=== PATIENT | female | born 1955 | race Caucasian/White ===

== ENCOUNTER 2016-10-24 09:06 | Emergency (ER) | payer MEDICARE, MEDICAID ==
[2015-09-27 08:34] VITALS: BMI 24.5
[~2016-10-24 09:06] MED LIST: ASPIRIN325 MG PO; ATIVAN1 MG PO; BAYER CHEWABLE81 MG PO; BYSTOLIC5 MG PO; CARAFATE1 G PO; COREG 3.1253.125 MG PO; COREG CR10 MG PO; CYMBALTA60 MG PO; DEXILANT60 MG PO; DOXYCYCLINE HY100 M2 PO; DURAGESIC1 PATCH .1 TRANSDERM; ESGIC TABLET1 TAB PO; FLEXERIL10 MG PO; HUMALOG 30100 UNITS/ SC; IMDUR30 MG PO; IPRAT-ALBUT 0.5-3 ML NEB; K-DUR20 MEQ PO; KADIAN80 MG PO; KLONOPIN0.5 MG PO; LANTUS INSULIN10 ML SC; LANTUS SOL100 UNIT/1 SC; LANTUS SOL100 UNIT/1 SQ; LASIX20 MG PO; LOPRESSOR50 MG PO; MORPHINE IMMEDI30 M1 PO; MORPHINE SULFAT30 MG PO; MUCINEX DM ER1 EAC1 PO; NEURONTIN800 MG PO; NITRO-DUR0.1 MG TD; NITRO-DUR0.1 MG TRANSDERM; NITROSTAT0.4 MG SL; NOVOLOG100 U/M1; NOVOLOG100 U/M1 SC; NYSTATIN15 GM TP; OMNICEF300 MG PO; PERCOCET 10/3251 TA1 PO; PLAVIX75 MG PO; POTASSIUM20 MEQ/11 PO; PRAVACHOL20 MG PO; PRAVACHOL40 MG PO; PRILOSEC20 MG PO; PULMICORT0.5 MG/21 UPD; RANEXA500 MG PO; REMERON15 MG PO; REMERON45 MG PO; RESTASIS EYE DR30 EA EACH EYE; RESTORIL15 MG PO; RESTORIL22.5 MG PO; ROBAXIN-750750 MG PO; ROBITUSSIN DM 110 ML PO; SINGULAIR10 MG PO; TESSALON PERLE100 MG PO; TYLENOL 8 HOUR650 MG PO; VIIBRYD40 MG PO; XANAX0.5 MG PO; ZANAFLEX4 MG PO; ZOCOR40 MG PO; ZOFRAN8 MG PO
== END 2016-10-24 10:52 | disposition home or self-care (01) ==
LOC: D.ER 09:06
DX: S80.01XA Contusion of right knee, initial encounter (principal); W05.0XXA Fall from non-moving wheelchair, initial encounter; Y93.89 Activity, other specified; Y92.89 Other specified places as the place of occurrence of the external cause; S90.31XA Contusion of right foot, initial encounter; S93.402A Sprain of unspecified ligament of left ankle, initial encounter; E11.9 Type 2 diabetes mellitus without complications; Z79.4 Long term (current) use of insulin

== ENCOUNTER 2017-03-24 20:49 | Emergency (ER) | payer MEDICARE, MEDICAID ==
[2015-09-27 08:34] VITALS: BMI 24.5
[2017-03-24 22:19] LABS: BASOPHILS 0.2 % (0-2); EOSINOPHILS 0.8 % (0-7); HEMOGLOBIN 11.7 g/dL (12-16); IMMATURE GRANULOCYTES 0.8 % (0-5); LYMPHOCYTES 26.1 % (15-50); MCH 31.7 pg (26.0-34.0); MCHC 34.4 g/dL (31.0-37.0); MCV 92.1 fL (80.0-100.0); MEAN PLATELET VOLUME 10.5 fL (7.4-10.4); MONOCYTES 3.6 % (2-11); NEUTROPHILS 68.5 % (40-80); PLATELET COUNT 106 10x3/uL (130-400); RBC 3.69 10x6/uL (4.00-5.40); RDW 12.4 % (11.5-14.5); WBC 6.6 10x3/uL (4.8-10.8)
[2017-03-24 22:28] LABS: KETONE - SERUM NEGATIVE (NEGATIVE)
[2017-03-24 22:41] LABS: ALBUMIN 3.1 g/dL (3.4-5.0); ALKALINE PHOSPHATASE 100 U/L (46-116); ALT (SGPT) 31 U/L (10-68); BILIRUBIN - TOTAL 0.36 mg/dL (0.2-1.3); CALC OSMOLALITY 298 mosm/kg (275-300); CALCIUM 7.7 mg/dL (8.5-10.1); CARBON DIOXIDE 27.4 mmol/L (21.0-32.0); CHLORIDE - SERUM 103 mmol/L (98-107); CREATININE - SERUM 0.9 mg/dL (0.6-1.3); POTASSIUM - SERUM 3.7 mmol/L (3.5-5.1); PRO BNP 71 pg/mL (0-125); PROTEIN - SERUM 6.6 g/dL (6.4-8.2); SODIUM 141 mmol/L (136-145); UREA NITROGEN 12 mg/dL (7-18); eGFR NON AFRICAN AMERICAN 68 mL/min (90-120)
[2017-03-24 22:52] LABS: GLUCOSE 426 mg/dL (74-106)
== END 2017-03-25 01:22 | disposition home or self-care (01) ==
LOC: D.ER 20:49
PROVIDERS: Physician Assistant Medical
DX: J44.1 Chronic obstructive pulmonary disease with (acute) exacerbation (principal); I44.4 Left anterior fascicular block

== ENCOUNTER 2017-04-27 11:49 | Emergency (ER) | payer MEDICARE, MEDICAID ==
[2015-09-27 08:34] VITALS: BMI 24.5
[2017-04-27 12:45] LABS: BASOPHILS 0.1 % (0-2); EOSINOPHILS 1.3 % (0-7); HEMATOCRIT 34.1 % (36.0-48.0); HEMOGLOBIN 11.8 g/dL (12-16); IMMATURE GRANULOCYTES 0.9 % (0-5); LYMPHOCYTES 22.7 % (15-50); MCH 31.2 pg (26.0-34.0); MCHC 34.6 g/dL (31.0-37.0); MCV 90.2 fL (80.0-100.0); MEAN PLATELET VOLUME 10.6 fL (7.4-10.4); MONOCYTES 10.8 % (2-11); NEUTROPHILS 64.2 % (40-80); PLATELET COUNT 105 10x3/uL (130-400); RBC 3.78 10x6/uL (4.00-5.40); RDW 12.7 % (11.5-14.5); WBC 6.9 10x3/uL (4.8-10.8)
[2017-04-27 12:57] LABS: ALBUMIN 3.4 g/dL (3.4-5.0); ALKALINE PHOSPHATASE 113 U/L (46-116); ALT (SGPT) 53 U/L (10-68); BILIRUBIN - TOTAL 0.78 mg/dL (0.2-1.3); CALC OSMOLALITY 283 mosm/kg (275-300); CALCIUM 9.1 mg/dL (8.5-10.1); CARBON DIOXIDE 29.3 mmol/L (21.0-32.0); CHLORIDE - SERUM 100 mmol/L (98-107); CREATININE - SERUM 0.8 mg/dL (0.6-1.3); PROTEIN - SERUM 6.9 g/dL (6.4-8.2); SODIUM 138 mmol/L (136-145); UREA NITROGEN 10 mg/dL (7-18); eGFR NON AFRICAN AMERICAN 77 mL/min (90-120)
[2017-04-27 13:00] LABS: GLUCOSE 263 mg/dL (74-106)
[2017-04-27 13:08] LABS: CKMB 0.5 U/L (0.0-3.6); CREATINE KINASE 41 UL (21-215); PRO BNP 90 pg/mL (0-125)
[2017-04-27 13:12] LABS: TROPONIN-I < 0.017 ng/mL (0.000-0.060)
== END 2017-04-27 14:24 | disposition home or self-care (01) ==
LOC: D.ER 11:49
PROVIDERS: Family Medicine
DX: J20.9 Acute bronchitis, unspecified (principal); J44.1 Chronic obstructive pulmonary disease with (acute) exacerbation; E11.9 Type 2 diabetes mellitus without complications; I48.92 Unspecified atrial flutter

== ENCOUNTER 2017-07-20 05:56 | Day surgery (SDC) | payer MEDICARE, MEDICAID ==
[~2017-07-20] VITALS: Ht 167.6 cm; Wt 64.4 kg
--- NOTE | ~2017-07-20 | OP ---
PATIENT NAME: TATI VELÁSQUEZ MEDICAL RECORD: [id number] :59 LOCATION:D.[facility] ADMISSION DATE: SURGEON: KOSTAS LINARES MD DATE OF OPERATION: 07/20/2017 PRINCIPAL DIAGNOSES: Subcutaneous port and vascular catheter, desires removal. POSTOPERATIVE DIAGNOSES: Subcutaneous port and vascular catheter, desires removal. PROCEDURE: Removal of subcutaneous port and vascular catheter. SURGEON: Kostas Linares MD TRANSIT SPECIALIST: None. BLOOD LOSS: Minimal. ANESTHESIA: Local with IV sedation. COMPLICATIONS: None. The risks, possible complications and alternatives to procedure were explained to the patient. The patient elected to proceed. OPERATIVE COURSE: The patient was conveyed to the operating room electively. Anesthesia was induced by the anesthesia staff. The area overlying the port was sterilely prepped and draped. I incised through the scar. I dissected down to the port. The pseudo bursa was incised. I delivered the port. I cut all 3 Prolene sutures. I then removed the port and the vascular catheter. They were removed in their entireties. I then oversewed the fibrous tract into the vascular system with a 3-0 Vicryl [id number] suture. The pseudo bursa was cauterized. There was no bleeding. The subdermis was approximated with interrupted 3-0 Vicryls. The skin was approximated with a running intracuticular 4-0 Vicryl. Benzoin and Steri-Strips were applied. The patient was then conveyed to the postanesthesia care unit. TRANSINT:[id number] Voice Confirmation ID: [id number] DOCUMENT ID: [id number] KOSTAS LINARES MD at 1042 CC: PRINCESS TONG MD [id number] DICTATION DATE: 07/20/17 1021 PATCH WORKER: 07/20/17 1048 [facility] 07/20/17 [place] [id number]
[2017-07-20] MEDS ORDERED: BASAGLAR K100 UNIT/1 (06:19)
[2017-07-20] MEDS ORDERED: DESERYL100 MG PO (06:23)
[2017-07-20] MEDS ORDERED: PRAVACHOL40 MG PO (06:24)
[2017-07-20] MEDS ORDERED: SINGULAIR10 MG PO (06:26)
[2017-07-20] MEDS ORDERED: BREO ELLIPTA 21 EACH (06:27)
[2017-07-20] MEDS ORDERED: PROAIR HFA8.5 GM INH (06:28)
[2017-07-20 06:33] LABS: BASOPHILS 0.1 % (0-2); EOSINOPHILS 1.3 % (0-7); HEMATOCRIT 33.1 % (36.0-48.0); HEMOGLOBIN 11.2 g/dL (12-16); IMMATURE GRANULOCYTES 0.8 % (0-5); LYMPHOCYTES 30.1 % (15-50); MCH 29.9 pg (26.0-34.0); MCHC 33.8 g/dL (31.0-37.0); MCV 88.5 fL (80.0-100.0); MEAN PLATELET VOLUME 10.7 fL (7.4-10.4); MONOCYTES 6.7 % (2-11); RBC 3.74 10x6/uL (4.00-5.40); WBC 7.7 10x3/uL (4.8-10.8)
[2017-07-20 06:44] LABS: CALC OSMOLALITY 287 mosm/kg (275-300); CALCIUM 8.1 mg/dL (8.5-10.1); CARBON DIOXIDE 25.9 mmol/L (21.0-32.0); CHLORIDE - SERUM 102 mmol/L (98-107); CREATININE - SERUM 0.8 mg/dL (0.6-1.3); POTASSIUM - SERUM 3.9 mmol/L (3.5-5.1); SODIUM 138 mmol/L (136-145); UREA NITROGEN 12 mg/dL (7-18); eGFR NON AFRICAN AMERICAN 77 mL/min (90-120)
[2017-07-20 06:47] LABS: PLATELET COUNT 129 10x3/uL (130-400)
[2017-07-20 06:48] VITALS: BP 138/72; Ht 167.6 cm; Wt 64.4 kg
[2017-07-20 06:49] LABS: GLUCOSE 317 mg/dL (74-106)
[2017-07-20 06:53] LABS: APTT 26.2 SECONDS (22.8-39.4); INR 0.96 (0.85-1.17); PROTIME 12.4 SECONDS (11.6-15.0)
== END 2017-07-20 09:50 | disposition home or self-care (01) ==
LOC: D.OPS 05:56 → D.PAN 08:00 → D.OPS 09:15 → D.PAN 09:15 → D.OPS 09:50
PROVIDERS: Anesthesiology
DX: Z45.2 Encounter for adjustment and management of vascular access device (principal); Z01.812 Encounter for preprocedural laboratory examination

== ENCOUNTER 2017-08-03 11:57 | Outpatient (CLI) | payer MEDICARE, MEDICAID ==
[2017-07-20 06:48] VITALS: BMI 22.9
--- NOTE | ~2017-08-03 | HEMODYNAMI ---
PATIENT:TATI VELÁSQUEZ MEDICAL RECORD: [id number] : 59 LOCATION:[facility] ADMISSION DATE: 08/03/17 Generatedon:08/03/201715:15 Patient name: TATI VELÁSQUEZ Patient #: [id number] SSN: D OB: 1955 Date of study: 08/03/2017 Page: Of Hemodynamic Procedure Report Patient Data Patient Demographics Procedure consent was obtained First Name: TATI Gender: Female Last Name: CHRISTEN : 1955 Middle Initial: A Age: 62 year(s) Patient #: [id number] Race: Additional ID: [id number] Contact details Address: [address] [place] [address] [address] State: [place] City: [place] Zip code: [address] Past Medical History Allergies Allergen Reaction Date Comments Reported Other allergy 02/24/2015 Atenolol, codeine, dilaudid, prednisone Admission Admission Data Admission Date: 08/03/2017 Admission Time: 11:57 Procedure Procedure Types Cath Procedure Diagnostic Procedure LHC LHC w/Coronaries Procedure Description Procedure Date Procedure Date: 08/03/2017 Procedure Start Time: 15:05 Procedure End Time: 15:14 Procedure Staff Name Function Carlos Alberto Warner MD Performing Physician Gayla Humphrey RT Monitor Alan Pichardo RN Nurse Carly Bedolla RT Scrub Procedure Data Cath Procedure Fluoroscopy Diagnostic fluoroscopy Total fluoroscopy Time: 0.7 time: 0.7 min min Diagnostic fluoroscopy Total fluoroscopy dose: 276 dose: 276 mGy mGy Contrast Material Contrast Material Type Amount (ml) Isovue 300 52 Entry Location Entry Primary Successful Side Size Upsize Upsize Entry Closure Succes sful Closure Location (Fr) 1 (Fr) 2 (Fr) Remarks Device Remarks Femoral Right 5 Fr Exoseal artery Estimated blood loss: 5 ml Diagnostic catheters Device Type Used For End Catheter Placement MULTIPACK Pigtail 5 Fr LV Angiography catheter MULTIPACK JL 4.0 5Fr Left Coronary catheter Angiography MULTIPACK 3DRC 5Fr Right Coronary catheter Angiography Procedure Complications No complications Procedure Medications Medication Administration Route Dosage Oxygen NC 2 l/min Heparin Flush Bag added to field 2 bags (1000units/500ml NS) 0.9% NaCl I.V. 100 ml/hr Fentanyl I.V. 50 mcg Versed I.V. 1 mg Fentanyl I.V. 50 mcg Versed I.V. 1 mg Fentanyl I.V. 50 mcg Lopressor I.V. 5 mg Hemodynamics Rest Pre Cath Intra NCS Post Cath Vital Signs Time Heart Resp SPO2 NIBP (mmHg) Rhythm Pain Sedation Rate (ipm) (%) Status Level (bpm) 14:58:40 104 17 99 150/91(124) NSR 0 (11) 10(A) , No pain 15:02:52 103 17 97 139/82(105) NSR 0 (11) 10(A) , No pain 15:07:00 99 17 94 122/76(92) NSR 0 (11) 10(A) , No pain 15:11:04 92 16 90 122/81(104) NSR 0 (11) 9(A) , No pain 15:14:00 94 16 96 135/90(115) NSR 0 (11) 9(A) , No pain Medications Time Medication Route Dose Verified Delivered Reason Notes Effec tiveness by by 15:03:44 Oxygen NC 2 Carlos Alberto Alan Per l/min Alana Pichardo RN physician 15:03:52 Heparin Flush added 2 Carlos Alberto Phillips used for Bag to bags Alana Pichardo RN procedure (1000units/500ml field NS) 15:04:00 0.9% NaCl I.V. 100 Carlos Alberto Oliveiray Per ml/hr Alana Pichardo RN physician 15:04:07 Fentanyl I.V. 50 Carlos Alberto Phillips for mcg Alana Pichardo RN sedation 15:04:14 Versed I.V. 1 mg Carlos Alberto Phillips for Alana Pichardo RN sedation 15:07:16 Fentanyl I.V. 50 Carlos Alberto Oliveiray for mcg Alana Pichardo RN sedation 15:07:20 Versed I.V. 1 mg Carlos Alberto Phillips for Alana Pichardo RN sedation 15:09:42 Fentanyl I.V. 50 Carlos Alberto Phillips for yumiko Pichardo RN sedation 15:09:50 Lopressor I.V. 5 mg Carlos Alberto Pichardo RN physician Procedure Log Time Note 14:30:15 Alan Pichardo RN sent for patient. Start room use. 14:40:16 Time tracking: Regular hours 14:40:20 Plan of Care:Hemodynamics will remain stable., Cardiac rhythm will remain stable., Comfort level will be maintained., Respiratory function will remain adequate., Patient/ family verbilizes understanding of procedure., Procedure tolerated without complication., Recovers from procedure without complications.. 14:47:48 Patient received from ED to CCL 2 Alert and oriented. Tansferred to table in Supine position. 14:47:49 Warm blankets applied, and leeanne hugger turned on for patient comfort. 14:47:50 Correct patient and procedure confirmed by team. 14:47:51 Signed procedure consent form obtained from patient. 14:47:51 ECG and BP/O2 sat monitors applied to patient. 14:47:52 Full Disclosure recording started 14:57:39 Vital chart was started 14:57:43 Rhythm: sinus rhythm 14:58:35 H&P Date Dictated: 08/03/2017 ER History on chart., New H&P dictated by physician.. 14:58:36 Pre-procedure instructions explained to patient. 14:58:36 Pre-op teaching completed and patient verbalized understanding. 14:58:37 Family in waiting room. 14:58:40 Patient NPO since Midnight. 15:00:06 Is patient on blood thinner?Yes 15:00:08 Is the patient allergic to Iodine/contrast media? Yes. 15:00:12 Was the patient premedicated? Yes 15:00:15 ACC The patient was administered the following blood thiners within the last 24 hours: ACCAspirin, ACCPlavix 15:00:16 Patient diabetic? Yes. 15:00:17 If diabetic: On Metformin? No 15:00:20 Previous problem with sedation/anesthesia? No ? 15:00:21 Snore? Yes 15:00:22 Sleep apnea? No 15:00:23 Deviated septum? No 15:00:24 Opens mouth fully? Yes 15:00:25 Sticks out tongue? Yes 15:00:30 Airway obstruction? Yes COPD 15:00:40 Dentures? Yes Removed in Machine Puller 15:02:54 Pre procedure: right dorsailis pedis pulse 2+ Normal; easily identifiable; not easily obliterated 15:02:58 Patient pain scale 0/10 ?. 15:03:04 IV patent on arrival in left antecubital with 0.9% NaCl at O. 15:03:08 Lab results completed and on chart. 15:03:11 Right groin area was prepped with chlora-prep and draped in sterile fashion 15:03:12 Alarms reviewed by R. N. 15:03:12 Sharps counted by scrub and verified by R.N. 15:03:13 Final Timeout: patient, procedure, and site verified with staff and physician. All members of the team are in agreement. 15:03:15 Right groin site verified by team. 15:03:17 Physical assessment completed. ASA score P 2 - A patient with mild systemic disease as per Carlos Alberto Warner MD. 15:03:20 Sedation plan: IV Moderate Sedation Medication:Versed, Fentanyl 15:03:34 IV Extension Set opened to sterile field. 15:03:44 Oxygen 2 l/min NC was administered by Alan Pichardo RN; Per physician; 15:03:52 Heparin Flush Bag (1000units/500ml NS) 2 bags added to field was administered by Alan Pichardo RN; used for procedure; 15:04:00 0.9% NaCl 100 ml/hr I.V. was administered by Alan Pichardo RN; Per physician; 15:04:07 Fentanyl 50 mcg I.V. was administered by Alan Pichardo RN; for sedation; 15:04:14 Versed 1 mg I.V. was administered by Alan Pichardo RN; for sedation; 15:04:45 Use device set Femoral Dx 15:04:46 ACIST Syringe (65407) opened to sterile field. 15:04:47 Bag Decanter (2002S) opened to sterile field. 15:04:48 Medline Cath Pack ([id number]) opened to sterile field. 15:04:48 SHEATH 5FR [place] (AIH069) opened to sterile field. 15:04:49 DIAGNOSTIC WIRE .035 260cm J wire (029134) opened to sterile field. 15:04:50 ACIST Hand Control (37679) opened to sterile field. 15:04:50 ACIST Manifold (76166) opened to sterile field. 15:04:51 DIAGNOSTIC Multipack 5Fr catheter set (ZG7633) opened to sterile field. 15:04:52 Tegaderm 4 x 4 (1626W) opened to sterile field. 15:04:52 PERCUTANEOUS ENTRY 19GA needle opened to sterile field. 15:05:54 Procedure started. 15:05:57 Local anesthetic to right femoral artery with Lidocaine 2% by Carlos Alberto Warner MD.INITIAL ACCESS ONLY 15:06:45 A 5 Fr sheath was inserted into the Right Femoral artery 15:07:16 Fentanyl 50 mcg I.V. was administered by Alan Pichardo RN; for sedation; 15:07:20 Versed 1 mg I.V. was administered by Alan Pichardo RN; for sedation; 15:08:09 A MULTIPACK Pigtail 5 Fr catheter was advanced over the wire and used for LV Angiography. 15:08:11 LV gram done using SHAH 15:08:14 Injector settings: Ml/sec: 10, Volume: 20, 15:08:15 Catheter removed. 15:08:20 A MULTIPACK JL 4.0 5Fr catheter was advanced over the wire and used for Left Coronary Angiography. 15:08:30 Catheter removed. 15:09:14 A MULTIPACK 3DRC 5Fr catheter was advanced over the wire and used for Right Coronary Angiography. 15:09:42 Fentanyl 50 mcg I.V. was administered by Alan Pichardo RN; for sedation; 15::42 Catheter removed. 15:09:50 Lopressor 5 mg I.V. was administered by Alan Pichardo RN; Per physician; 15:09:56 EXOSEAL 5Fr (EX500) opened to sterile field. 15:10:56 Sheath removed intact; hemostasis achieved with Exoseal to the Right Femoral artery. 15:12:05 Procedure ended.(Physican Out) 15:12:14 Fluoroscopy time 00.70 minutes. 15:12:17 Flurop Dose total: 276 15:12:17 Fluoroscopy dose: 276 mGy 15:12:20 Contrast amount:Isovue 300 52ml. 15:12:21 Sharps counted by scrub and verified by R.N. 15:12:23 Insertion/operative site no bleeding no hematoma. 15:12:25 Post-op/insertion site Right Femoral artery dressed using a 4 x 4 and Tegaderm. 15:12:28 Post right femoral artery:stable, clean and dry 15:12:31 Post Procedure Pulses reassessed and unchanged 15:12:34 Post-procedure physical assessment completed. ASA score P 2 - A patient with mild systemic disease as per Carlos Alberto Warner MD. 15:12:36 Post procedure rhythm: unchanged. 15:12:39 Estimated blood loss: 5 ml 15:12:44 Post procedure instruction explained to patient.Patient verbalizes understanding. 15:12:44 Patient needs reinforcement of post procedure teaching. 15:13:05 Procedure Complication : No complications 15:13:06 See physician's report for complete and final results. 15:13:35 Procedure and supply charges have been captured, reviewed, submitted and are correct. 15:14:06 Vital chart was stopped 15:14:09 Report given to Pre/Post Procedure Room. 15:14:16 Patient transfered to Pre/Post Procedure Room with Stretcher. 15:14:23 Procedure ended. 15:14:23 Full Disclosure recording stopped 15:14:26 End room use (Document Last) Device Usage Item Name Manufacture Quantity Catalog Hospital Part Current Minimal Lot# / Number Charge Number Stock Stock Serial# Code IV Extension Hospira 1 16732-66 231026 66416 904253 5 Set ACIST Acist 1 55290 203339 366711 486833 20 Syringe Medical (45054) Systems Inc Bag Decanter Microtek 1 2001S 973261 66197 080661 5 (2001S) Medical Inc. Medline Cath Cardinal 1 [id number] 691449 14465 844473 5 Pack Health ([id number]) SHEATH 5FR Terumo 1 QOE299 137217 494647 686254 40 [place] (MLW672) DIAGNOSTIC St Stepan 1 795205 060017 422827 879009 30 WIRE .035 260cm J wire (443419) ACIST Hand Acist 1 26439 595722 218748 067652 5 Control Medical (51922) Systems Inc ACIST Acist 1 35886 325914 110874 300692 5 Manifold Medical (04195) Systems Inc DIAGNOSTIC Cardinal 1 AV3955 278602 85214 302880 30 Multipack Health 5Fr catheter set (CQ7852) Tegaderm 4 x 3M 1 1626W 707477 231265 552118 5 4 (1626W) PERCUTANEOUS Cook Medical 1 W42815 980151 110041 5 ENTRY 19GA needle MULTIPACK Cardinal 1 030490 5 Pigtail 5 Fr Health catheter MULTIPACK JL Cardinal 1 876059 5 4.0 5Fr Health catheter MULTIPACK Cardinal 1 479433 5 3DRC 5Fr Health catheter EXOSEAL 5Fr Cardinal 1 EX500 127034 521661 943092 10 (EX500) Health Signature Audit [place] Stage Time Signature Unsigned Intra-Procedure 08/03/2017 Gayla 3:15:09 PM Counts RT(R) Signatures Monitor : Gayla Signature : Counts RT Date : Time : [place] [id number] [place] [address]
--- NOTE | ~2017-08-03 | OP ---
PATIENT NAME: TATI VELÁSQUEZ MEDICAL RECORD: [id number] :59 LOCATION:D.CAT ADMISSION DATE: SURGEON: SHEREE MARTINEZ MD DATE OF OPERATION: 08/03/2017 PROCEDURES: 1. Left heart catheterization. 2. Selective coronary angiography. 3. Left ventriculogram. INDICATION: Angina and coronary artery disease. PROCEDURE IN DETAIL: After informed consent was obtained and after detailed explanation of risks, benefits as well as alternative therapies, the patient elected to proceed with angiogram and heart catheterization. The right femoral area was prepped and draped in normal sterile fashion. The right femoral artery was cannulated via modified Seldinger technique with placement of a 6-Gren[place] sheath. All catheters exchanged through this sheath. FINDINGS: The left ventriculogram was performed in standard 30-degree SHAH view, reveals good cardiac wall motion throughout all segments. Overall ejection fraction estimated 60%. SELECTIVE CORONARY ANGIOGRAPHY: 1. Left main is with no significant angiographic disease. 2. Left anterior descending has previously placed stents. These are widely patent in the LAD and the LAD diagonal. There is no disease elsewise. 3. Left circumflex shows mild irregularities, but no flow-limiting stenosis. 4. Right coronary has mild irregularities, but no flow-limiting stenosis. OVERALL IMPRESSION: Wide patency of the previously placed stents in the LAD and the LAD diagonal. No disease elsewise. Continue medical management of the coronary artery disease and cardiac risk factors. TRANSINT:[id number] Voice Confirmation ID: [id number] DOCUMENT ID: [id number] SHEREE MARTINEZ MD at 1056 CC: [id number] DICTATION DATE: 08/03/17 1515 CUSTOMER SALES SPECIALIST: 08/04/17 0159 DEP CLI 08/03/17 [place] [id number]
--- NOTE | ~2017-08-03 | CN ---
PATIENT NAME:TATI VELÁSQUEZ MEDICAL RECORD: [id number] : 59 LOCATION:D.CAT ADMIT DATE: ACCOUNT: [id number] CONSULTING PHYSICIAN: SHEREE MARTINEZ MD REFERRING PHYSICIAN: NISA MOREIRA MD DATE OF CONSULTATION: 08/03/2017 DIAGNOSES: 1. Unstable angina. 2. Coronary artery disease. 3. Previous multivessel percutaneous transluminal coronary angioplasty stent. 4. Hypertension. 5. Hyperlipidemia. HISTORY OF PRESENT ILLNESS: Ms. Velásquez presents with chest pain, chest discomfort compatible with angina. She continues to have the episodes of chest pain. Her last cardiac intervention was in 2013. REVIEW OF SYSTEMS: The patient reports easy bruising but reports no swollen glands. The patient reports no fever, no night sweats, no significant weight gain, no significant weight loss. No significant exercise tolerance. The patient reports no dry eyes, no irritation, no vision change. Patient reports no difficulty hearing and no ear pain. Patient reports no frequent nose bleeds or nose and sinus problems. Patient reports on arm pain on exertion. No shortness of breath while lying down. No history of heart murmur. Patient reports no cough, no wheezing or coughing up blood. Patient reports no abdominal pain, no vomiting. Normal appetite. No diarrhea and not vomiting blood. No nausea and no constipation. Patient reports no incontinence. No difficulty urinating. No hematuria. No increased frequency. Patient reports no muscle aches. No weakness, no arthralgias, no back pain. No swelling of the extremities. Patient reports no abnormal mole, no jaundice, no rashes. Reports no loss of consciousness. No weakness and no numbness. No seizures, dizziness, or headaches. The patient reports no depression, no sleep disturbance, feeling safe in a relationship and no alcohol abuse. Patient reports on fatigue. Reports no runny nose or sinus pressure. No itching, no hives, and no frequent sneezing. PHYSICAL EXAMINATION: GENERAL APPEARANCE: Well-nourished, well-developed, appears stated age. Level of distress, comfortable. PSYCHIATRIC: Mental status, alert, normal affect. Orientation, oriented to time, place and person. EYES: Lids and conjunctiva, noninjected. No discharge, no pallor. ENT: Lips, teeth, gums, normal dentition. Oropharynx, no cyanosis, no pallor. NECK: Carotid arteries, bilateral normal upstroke, no bruits, no thrills. JUGULAR VEINS: No jugular venous pressure or distention. CERVICAL LYMPH NODES: Nontender, nonenlarged. THYROID: Not enlarged. Nontender. No nodules. LUNGS: Respiratory effort, unlabored. CHEST: Normal curvature. No thoracic deformity. No chest wall tenderness. Percussion, resonant. Auscultation, clear. No wheezes, no rales, no rhonchi. CARDIOVASCULAR: Precordial exam, nondisplaced. No heaves or pericardial thrills. Rate and rhythm, regular. Heart sounds, normal S1, normal S2. No S3, no gallop, no rub. Systolic murmur, not heard. Diastolic murmur, not heard. EXTREMITIES: No cyanosis, no edema. Peripheral pulses, full and equal in all CONSULT REPORT [id number] TATI VELÁSQUEZ extremities, except as noted. No bruits appreciated. ABDOMEN: Soft, nondistended. Normal aorta. No bruit. Nontender. No masses. Liver, nontender, no hepatomegaly. Spleen, nontender, no splenomegaly. MUSCULOSKELETAL: No joint tenderness. No joint swelling. No erythema. NEUROLOGICAL: Normal gait, normal strength, normal tone. SKIN: Warm and dry. OVERALL IMPRESSION: Chest pain compatible with angina in an unstable fashion. We will proceed with coronary angiography. She does have a contrast allergy. We will premedicate with Solu-Medrol and Benadryl. TRANSINT:[id number] Voice Confirmation ID: [id number] DOCUMENT ID: [id number] SHEREE MARTINEZ MD at 1056 CC: [id number] DICTATION DATE: 08/03/17 1317 LACTATION CONSULTANT: 08/03/17 1331 DEP CLI 08/03/17 [facility] [address] [place] [address]
[~2017-08-03 11:57] MED LIST changes: +BASAGLAR K100 UNIT/1; +BREO ELLIPTA 21 EACH; +DESERYL100 MG PO; +PROAIR HFA8.5 GM INH
[2017-08-03 12:45] LABS: BASOPHILS 0.1 % (0-2); EOSINOPHILS 1.9 % (0-7); HEMATOCRIT 37.5 % (36.0-48.0); HEMOGLOBIN 12.7 g/dL (12-16); IMMATURE GRANULOCYTES 0.4 % (0-5); LYMPHOCYTES 27.8 % (15-50); MCH 29.7 pg (26.0-34.0); MCHC 33.9 g/dL (31.0-37.0); MCV 87.6 fL (80.0-100.0); MEAN PLATELET VOLUME 11.1 fL (7.4-10.4); MONOCYTES 5.1 % (2-11); NEUTROPHILS 64.7 % (40-80); PLATELET COUNT 137 10x3/uL (130-400); RBC 4.28 10x6/uL (4.00-5.40); RDW 12.9 % (11.5-14.5); WBC 7.5 10x3/uL (4.8-10.8)
[2017-08-03 13:02] LABS: ALBUMIN 3.5 g/dL (3.4-5.0); ALKALINE PHOSPHATASE 158 U/L (46-116); ALT (SGPT) 45 U/L (10-68); BILIRUBIN - TOTAL 0.53 mg/dL (0.2-1.3); CALC OSMOLALITY 289 mosm/kg (275-300); CALCIUM 8.6 mg/dL (8.5-10.1); CARBON DIOXIDE 28.8 mmol/L (21.0-32.0); CHLORIDE - SERUM 99 mmol/L (98-107); GLUCOSE 337 mg/dL (74-106); POTASSIUM - SERUM 3.7 mmol/L (3.5-5.1); PROTEIN - SERUM 7.6 g/dL (6.4-8.2); SODIUM 139 mmol/L (136-145); UREA NITROGEN 10 mg/dL (7-18); eGFR NON AFRICAN AMERICAN 60 mL/min (90-120)
[2017-08-03 13:11] LABS: CHOL - HDL RATIO 4.7 ratio (2.3-4.1); CHOLESTEROL, TOTAL 200 mg/dL (0-200); CKMB 0.5 U/L (0.0-3.6); CREATINE KINASE 27 UL (21-215); HDL CHOLESTEROL 43 mg/dL (32-96); LDL CHOLESTEROL 116 mg/dL (0-100); LDL-HDL RATIO 2.7 ratio (1.5-3.5); TRIGLYCERIDE 205 mg/dL (30-200)
[2017-08-03 13:12] LABS: TROPONIN-I < 0.017 ng/mL (0.000-0.060)
== END 2017-08-03 18:00 | disposition home or self-care (01) ==
LOC: D.CATH 11:57 → D.ER 11:57 → EDSTATUS 14:15 → D.CATH 18:00
PROVIDERS: Emergency Medicine
DX: I25.110 Atherosclerotic heart disease of native coronary artery with unstable angina pectoris (principal); Z95.5 Presence of coronary angioplasty implant and graft; I10 Essential (primary) hypertension; E78.5 Hyperlipidemia, unspecified; Z01.812 Encounter for preprocedural laboratory examination

== ENCOUNTER 2018-06-07 09:19 | Outpatient (CLI) | payer MEDICARE, MEDICAID ==
[~2018-06-07] VITALS: Ht 167.6 cm; Wt 65.9 kg
--- NOTE | ~2018-06-07 | HEMODYNAMI ---
PATIENT:TATI VELÁSQUEZ MEDICAL RECORD: [id number] : 59 LOCATION:[facility] ADMISSION DATE: 06/07/18 Generatedon:06/07/201812:58 Patient name: TATI VEÁLSQUEZ Patient #: [id number] SSN: D OB: 1955 Date of study: 06/07/2018 Page: Of Hemodynamic Procedure Report Patient Data Patient Demographics Procedure consent was obtained First Name: TATI Gender: Female Last Name: CHRISTEN : 1955 Middle Initial: A Age: 63 year(s) Patient #: [id number] Race: Additional ID: [id number] Contact details Address: [address] [place] [address] [address] State: [place] City: [place] Zip code: [address] Past Medical History Allergies Allergen Reaction Date Comments Reported Other allergy 02/24/2015 Atenolol, codeine, dilaudid, prednisone Admission Admission Data Admission Date: 06/07/2018 Admission Time: 9:19 Procedure Procedure Types Cath Procedure Diagnostic Procedure C [facility] w/Coronaries FFR/IVUS Intra-Coronary IVUS Initial PCI Procedure Coronary Stent Coronary Stent Initial Procedure Description Procedure Date Procedure Date: 06/07/2018 Procedure Start Time: 12:43 Procedure End Time: 12:58 Procedure Staff Name Function Carlos Alberto Warner MD Performing Physician Africa Doshi RN Nurse Gayla Humphrey RT Monitor Carly Bedolla RT Scrub Griffin Fontenot RT Pattern Worker Procedure Data Cath Procedure Fluoroscopy Diagnostic fluoroscopy Total fluoroscopy Time: 2.9 time: 2.9 min min Diagnostic fluoroscopy Total fluoroscopy dose: 480 dose: 480 mGy mGy Contrast Material Contrast Material Type Amount (ml) Isovue 300 59 Entry Location Entry Primary Successful Side Size Upsize Upsize Entry Closure Succes sful Closure Location (Fr) 1 (Fr) 2 (Fr) Remarks Device Remarks Femoral Right 5 Fr 6 Fr Exoseal artery Short Estimated blood loss: 10 ml Diagnostic catheters Device Type Used For End Catheter Placement MULTIPACK Pigtail 5 Fr LV Angiography catheter MULTIPACK JL 4.0 5Fr Left Coronary catheter Angiography MULTIPACK 3DRC 5Fr Right Coronary catheter Angiography Procedure Complications No complications Procedure Medications Medication Administration Route Dosage 0.9% NaCl I.V. 100 ml/hr Oxygen etCO2 Nasal cannula 2 l/min Lidocaine 2% added to field 20 Heparin Flush Bag added to field 2 bags (1000units/500ml NS) Versed I.V. 2 mg Fentanyl I.V. 50 mcg Versed I.V. 2 mg Fentanyl I.V. 50 mcg Heparin Bolus I.V. 4000 units Hemodynamics Rest Heart Rate: 74 (bpm) Snapshots Pre Cath Intra NCS Post Cath Vital Signs Time Heart Resp SPO2 etCO2 NIBP (mmHg) Rhythm Pain Sedation Rate (ipm) (%) (mmHg) Status Level (bpm) 12:21:55 74 13 97 40 158/86(130) NSR 0 (11) 10(A) , No pain 12:26:09 72 15 97 36.8 143/85(111) NSR 0 (11) 10(A) , No pain 12:30:21 72 12 97 37 136/76(114) NSR 0 (11) 10(A) , No pain 12:34:33 71 12 96 36 128/71(96) NSR 0 (11) 10(A) , No pain 12:38:41 71 12 96 37 122/72(93) NSR 0 (11) 10(A) , No pain 12:42:47 72 12 96 42.2 124/71(93) NSR 0 (11) 10(A) , No pain 12:46:56 70 11 98 42.3 121/65(100) NSR 0 (11) 9(A) , No pain 12:51:04 68 10 97 29 109/67(100) NSR 0 (11) 9(A) , No pain 12:55:10 69 10 97 15.8 123/60(93) NSR 0 (11) 10(A) , No pain Medications Time Medication Route Dose Verified Delivered Reason Notes Effectiveness by by 12:21:14 0.9% NaCl I.V. 100 Carlos Alberto Africa used for ml/hr Alana Doshi library media assistant 12:21:20 Oxygen etCO2 2 Carlos Alberto Africa used for Nasal l/min Alana Doshi procedure cannula RN 12:21:26 Lidocaine 2% added 20ml Carlos Alberto Carlos Alberto for local to vial Alana Warner MD anesthetic field 12:21:31 Heparin Flush added 2 Carlos Alberto Carlos Alberto used for Bag to bags Alana Warner MD procedure (1000units/500ml field NS) 12:42:05 Versed I.V. 2 mg Carlos Alberto Africa for sedation Alana Doshi RN 12:42:19 Fentanyl I.V. 50 Carlos Alberto Africa for sedation mcg Alana Doshi RN 12:46:36 Versed I.V. 2 mg Carlos Alberto Africa for sedation Alana Doshi RN 12:46:43 Fentanyl I.V. 50 Carlos Alberto Africa for sedation mcg Alana Doshi RN 12:53:03 Heparin Bolus I.V. 4000 Carlos Alberto Africa for verif ied units Alana Doshi anticoagulation with Dr. DUANE Warner Procedure Log Time Note 12:12:05 Time tracking: Regular hours (M-F 7:00 - 5:00) 12:12:12 Plan of Care:Hemodynamics will remain stable., Cardiac rhythm will remain stable., Comfort level will be maintained., Respiratory function will remain adequate., Patient/ family verbilizes understanding of procedure., Procedure tolerated without complication., Recovers from procedure without complications.. 12:15:09 Griffin MCCULLOUGH(R) sent for patient. Start room use. 12:16:09 Patient received from Pre/Post Procedure Room to CCL 2 Alert and oriented. Tansferred to table in Supine position. 12:16:10 Warm blankets applied, and leeanne hugger turned on for patient comfort. 12:16:10 Correct patient and procedure confirmed by team. 12:16:12 Signed procedure consent form obtained from patient. 12:16:13 ECG and BP/O2 sat monitors applied to patient. 12:16:13 Full Disclosure recording started 12:20:32 H&P Date Dictated: 06/04/2018 Within 30 days and on chart., H&P Addendum completed by physician on day of procedure. (MUST COMPLETE FOR ALL OUTPATIENTS). 12:20:49 Vital chart was started 12:21:14 0.9% NaCl 100 ml/hr I.V. was administered by Africa Doshi RN; used for procedure; 12:21:20 Oxygen 2 l/min etCO2 Nasal cannula was administered by Africa Doshi RN; used for procedure; 12::26 Lidocaine 2% 20ml vial added to field was administered by Carlos Alberto Warner MD; for local anesthetic; 12:21:31 Heparin Flush Bag (1000units/500ml NS) 2 bags added to field was administered by Carlos Alberto Warner MD; used for procedure; 12::55 Baseline sample Acquired. 12::58 Rhythm: sinus rhythm 12:23:02 Pre-procedure instructions explained to patient. 12:23:02 Pre-op teaching completed and patient verbalized understanding. 12:23:07 Family in patients room. 12:23:09 Patient NPO since Midnight. 12:23:48 Is the patient allergic to Iodine/contrast media? Yes. 12:23:52 Was the patient premedicated? Yes 12:23:54 Is patient on blood thinner?Yes 12:23:57 ACC The patient was administered the following blood thiners within the last 24 hours: ACCPlavix 12:24:06 Patient diabetic? Yes. 12:24:07 If diabetic: On Metformin? No 12:24:12 Previous problem with sedation/anesthesia? No ? 12:24:13 Snore? Yes 12:24:16 Sleep apnea? Yes 12:24:21 Deviated septum? No 12:24:22 Opens mouth fully? Yes 12:24:23 Sticks out tongue? Yes 12:24:28 Airway obstruction? Yes COPD 12:24:33 Dentures? Yes IN 12:24:36 Pre procedure: right dorsailis pedis pulse 2+ Normal; easily identifiable; not easily obliterated 12:24:39 Patient pain scale 0/10 ?. 12:24:44 IV patent on arrival in right forearm with 0.9% NaCl at [facility]. 12:24:47 Lab results completed and on chart. 12:24:51 Right groin area was prepped with chlora-prep and draped in sterile fashion 12:24:52 Alarms reviewed by R. N. 12:24:53 Sharps counted by scrub and verified by R.N. 12:24:57 Use device set Femoral Dx 12:24:58 ACIST Syringe (74359) opened to sterile field. 12:24:58 Bag Decanter (2002S) opened to sterile field. 12:24:59 Medline Cath Pack ([id number]) opened to sterile field. 12:25:00 DIAGNOSTIC WIRE .035 260cm J wire (716858) opened to sterile field. 12:25:01 ACIST Hand Control (90214) opened to sterile field. 12:25:01 ACIST Manifold (56342) opened to sterile field. 12:25:02 DIAGNOSTIC Multipack 5Fr catheter set ([id number]) opened to sterile field. 12:25:05 Tegaderm 4 x 4 (1626W) opened to sterile field. 12:25:06 SHEATH 5FR [place] (BUV744) opened to sterile field. 12:29:09 Zero performed for pressure channel P1 12:29:15 Physician paged 12:41:24 Final Timeout: patient, procedure, and site verified with staff and physician. All members of the team are in agreement. 12:41:27 Right groin site verified by team. 12:41:31 Fire Safety Assessment: A--An alcohol-based skin anteseptic being used preoperatively., C--Open oxygen or nitrous oxide is being used., D--An ESU, laser, or fiber-optic light is being used. 12:41:34 Physical assessment completed. ASA score P 2 - A patient with mild systemic disease as per Carlos Alberto Warner MD. 12:41:38 Sedation plan: IV Moderate Sedation Medication:Versed, Fentanyl 12:42:05 Versed 2 mg I.V. was administered by Africa Doshi RN; for sedation; 12:42:19 Fentanyl 50 mcg I.V. was administered by Africa Doshi RN; for sedation; 12:43:11 Procedure started. 12:43:16 Local anesthetic to right femoral artery with Lidocaine 2% by Carlos Alberto Warner MD.INITIAL ACCESS ONLY 12:43:41 A 5 Fr sheath was inserted into the Right Femoral artery 12:44:21 A MULTIPACK Pigtail 5 Fr catheter was advanced over the wire and used for LV Angiography. 12:44:47 LV gram done using SHAH 12:44:51 EF : 60 % 12:44:55 Injector settings: Ml/sec: 10, Volume: 20, 12:44:56 Catheter removed. 12:45:05 A MULTIPACK JL 4.0 5Fr catheter was advanced over the wire and used for Left Coronary Angiography. 12:46:14 Catheter removed. 12:46:30 A MULTIPACK 3DRC 5Fr catheter was advanced over the wire and used for Right Coronary Angiography. 12:46:36 Versed 2 mg I.V. was administered by Africa Doshi RN; for sedation; 12:46:43 Fentanyl 50 mcg I.V. was administered by Africa Doshi RN; for sedation; 12:47:08 Catheter removed. 12:47:54 Sheath upsized to a 6 Fr Short. 12:48:09 Use device set ALANA PCI 12:48:12 SHEATH 6FR [place] (FMQ996) opened to sterile field. 12:48:16 INFLATOR Merit BasixCompak (LM0495) opened to sterile field. 12:48:18 CHOICE PT Extra Support 182cm wire ([id number]) opened to sterile field. 12:48:27 GUIDE 6FR 3DRC catheter ([id number]) opened to sterile field. 12:48:37 6 Fr 3DRC guide catheter was inserted over the wire 12:48:45 CHOICE PT ES wire advanced. 12:49:16 IVUS catheter advanced over wire. 12:49:23 IVUS pass to RCA lesion performed. 12:51:49 IVUS catheter removed over wire. 12:53:03 Heparin Bolus 4000 units I.V. was administered by Africa Doshi RN; for anticoagulation; verified with Dr. Warner 12:53:25 Place stent Inflation Number: 1 A INTEGRITY 4.0 x 18 stent ([id number]) was prepped and advanced across the Mid RCA. The stent was deployed at 13 ALBERT for 0:05 (min:sec). 12:53:44 Stent catheter was removed intact over wire. 12:53:45 Wire removed. 12:53:45 Guide catheter removed. 12:53:57 Sheath removed intact; hemostasis achieved with Exoseal to the Right Femoral artery. 12:54:03 EXOSEAL 6Fr (EX600) opened to sterile field. 12:54:23 Procedure ended.(Physican Out) 12:54:35 Fluoroscopy time 02.90 minutes. 12:54:39 Flurop Dose total: 480 12:54:39 Fluoroscopy dose: 480 mGy 12:54:42 Contrast amount:Isovue 300 59ml. 12:54:43 Sharps counted by scrub and verified by R.N. 12:55:00 Insertion/operative site no bleeding no hematoma. 12:55:03 Post-op/insertion site Right Femoral artery dressed using a 4 x 4 and Tegaderm. 12:55:06 Post right femoral artery:stable, clean and dry 12:55:08 Post Procedure Pulses reassessed and unchanged 12:55:11 Post-procedure physical assessment completed. ASA score P 2 - A patient with mild systemic disease as per Carlos Alberto Warner MD. 12:55:13 Post procedure rhythm: unchanged. 12:55:17 Estimated blood loss: 10 ml 12:55:21 Post procedure instruction explained to patient.Patient verbalizes understanding. 12:55:21 Patient needs reinforcement of post procedure teaching. 12:55:37 Procedure type changed to Cath procedure, Diagnostic procedure, LHC, LHC w/Coronaries, FFR/IVUS, Intra-Coronary IVUS Initial, PCI procedure, Coronary Stent, Coronary Stent Initial 12:57:41 Procedure and supply charges have been captured, reviewed, submitted and are correct. 12:57:44 Procedure Complication : No complications 12:57:46 Vital chart was stopped 12:57:47 See physician's report for complete and final results. 12:57:48 Report given to Pre/Post Procedure Room. 12:57:50 Patient transfered to Pre/Post Procedure Room with Stretcher. 12:58:01 Procedure ended. 12:58:01 Full Disclosure recording stopped 12:58:06 End room use (Document Last) Intervention Summary Intervention Notes Time ActionType Lesion and Equipment Action# Pressure Duration Attributes Used 12:53:25 Place stent Mid RCA INTEGRITY 1 13 00:05 4.0 x 18 stent ([id number]) Device Usage Item Name Manufacture Quantity Catalog Number Hospital Part Current Mini [facility] Lot# / Charge Number Stock Stock Serial# Code ACIST Acist 1 21313 330350 012200 179325 20 Syringe Medical (21171) Systems Inc Bag Decanter Microtek 1 482267 11061 631362 5 () Medical Inc. Medline Cath Medline 1 [id number] 136880 12725 897473 5 Pack ([id number]) DIAGNOSTIC St Stepan 1 354840 004794 174059 974671 30 WIRE .035 260cm J wire (776252) ACIST Hand Acist 1 12519 589650 605103 653308 5 Control Medical (27192) Systems Inc ACIST Acist 1 57601 717507 347226 338742 5 Manifold Medical (75201) Systems Inc DIAGNOSTIC Cardinal 1 WO3870 333394 91911 416903 30 Multipack Health 5Fr catheter set (NM9425) Tegaderm 4 x 3M 1 1626W 403091 021452 822762 5 4 (1626W) SHEATH 5FR Terumo 1 SCB342 928713 101149 420902 5 [place] (DWH111) MULTIPACK Cardinal 1 259883 5 Pigtail 5 Fr Health catheter MULTIPACK JL Cardinal 1 275630 5 4.0 5Fr Health catheter MULTIPACK Cardinal 1 467782 5 3DRC 5Fr Health catheter SHEATH 6FR Terumo 1 NAB444 374538 361737 852983 40 [place] (GXK511) INFLATOR Merit 1 PY8169 921916 178676 370693 15 [facility] Medical BasixCompak (TJ8437) CHOICE PT [place] 1 [id number] 518421 617957 113068 5 Extra Scientific Support 182cm wire ([id number]) GUIDE 6FR Medtronic 1 [id number] 348672 611991 234351 1 3DRC catheter ([id number]) INTEGRITY Medtronic 1 [id number] 465609 154627 566476 5 [id number] 4.0 x 18 stent ([id number]) EXOSEAL 6Fr Cardinal 1 EX600 261910 456150 085617 10 (EX600) Health Signature Audit [place] Stage Time Signature Unsigned Intra-Procedure 06/07/2018 Gayla 12:58:17 PM Counts RT(R) Signatures Monitor : Gayla Signature : Counts RT Date : Time : [facility] [address] [place] [address]
[2018-06-07] MEDS ORDERED: DEPAKOTE500 MG PO (09:38)
[2018-06-07] MEDS ORDERED: PROTONIX20 MG PO (09:40)
[2018-06-07] MEDS ORDERED: RESTORIL15 MG PO (09:43)
[2018-06-07] MEDS ORDERED: ATARAX 25 MG TA25 MG PO (09:44)
[2018-06-07] MEDS ORDERED: ZOFRAN4 MG PO (09:45)
[2018-06-07] MEDS ORDERED: ZANAFLEX4 MG PO (09:50)
[2018-06-07] MEDS ORDERED: CYMBALTA30 MG PO (09:51)
[2018-06-07] MEDS ORDERED: REMERON30 MG PO (09:52)
[2018-06-07] MEDS ORDERED: PROPRANOLOL HCL20 MG PO (09:53)
[2018-06-07] MEDS ORDERED: CYMBALTA60 MG PO (09:54)
[2018-06-07 10:16] VITALS: BP 132/68; Ht 167.6 cm; Wt 65.9 kg
[2018-06-07] MEDS ORDERED: PULMICORT0.5 MG/21 INH (10:26)
[2018-06-07] MEDS ORDERED: VENTOLIN IH (10:28)
[2018-06-07] MEDS ORDERED: MACRODANTIN100 MG PO (10:28)
[2018-06-07] MEDS ORDERED: BUSPAR10 MG PO (10:29)
[2018-06-07] MEDS ORDERED: BREO ELLIPTA 11 EACH INH (10:29)
[2018-06-07] MEDS ORDERED: ALBUTEROL SULF8.5 GM INH (10:29)
[2018-06-07] MEDS ORDERED: LINZESS145 MCG PO (10:30)
[2018-06-07] MEDS ORDERED: SOLODYN115 MG PO (10:31)
[2018-06-07] MEDS ORDERED: ROBAXIN500 MG PO (10:32)
[2018-06-07] MEDS ORDERED: FLUTICASONE PRO16 GM NASAL (10:34)
[2018-06-07] MEDS ORDERED: CROMOLYN S20 MG/2 ML NEB (10:34)
[2018-06-07] MEDS ORDERED: ALDACTONE50 MG PO (10:35)
[2018-06-07] MEDS ORDERED: TESSALON PERLE100 MG PO (10:35)
[2018-06-07] MEDS ORDERED: RESTASIS EACH EYE (10:36)
[2018-06-07] MEDS ORDERED: CLOBETASOL PROP15 GM TP (10:37)
[2018-06-07] MEDS ORDERED: IPRAT-ALBUT 0.5-3 ML UPD (10:37)
[2018-06-07] MEDS ORDERED: TRESIBA FL100 UNIT/1 SC (10:38)
[2018-06-07 10:40] LABS: BASOPHILS 0.2 % (0-2); EOSINOPHILS 1.8 % (0-7); HEMATOCRIT 31.8 % (36.0-48.0); HEMOGLOBIN 10.4 g/dL (12-16); IMMATURE GRANULOCYTES 0.4 % (0-5); LYMPHOCYTES 49.4 % (15-50); MCHC 32.7 g/dL (31.0-37.0); MCV 85.7 fL (80.0-100.0); MEAN PLATELET VOLUME 9.6 fL (7.4-10.4); MONOCYTES 11.5 % (2-11); NEUTROPHILS 36.7 % (40-80); RBC 3.71 10x6/uL (4.00-5.40); RDW 14.2 % (11.5-14.5)
[2018-06-07] MEDS ORDERED: HUMULIN R SQ (10:41)
[2018-06-07 10:45] LABS: PLATELET COUNT 85 10x3/uL (130-400)
[2018-06-07 10:48] LABS: CALC OSMOLALITY 288 mosm/kg (275-300); CALCIUM 8.5 mg/dL (8.5-10.1); CARBON DIOXIDE 31.1 mmol/L (21.0-32.0); CHLORIDE - SERUM 105 mmol/L (98-107); CREATININE - SERUM 0.8 mg/dL (0.6-1.3); GLUCOSE 111 mg/dL (74-106); POTASSIUM - SERUM 3.9 mmol/L (3.5-5.1); SODIUM 144 mmol/L (136-145); UREA NITROGEN 16 mg/dL (7-18); eGFR NON AFRICAN AMERICAN 77 mL/min (90-120)
--- NOTE | 2018-06-07 13:10 | NUR ---
PT RECEIVED BACK TO ROOM FROM INCIDENT RESPONSE ANALYST FOR RECOVERY. PT SLEEPING COMFORTABLY. HR NSR RATE 78, BP 125/74, O2 SAT 93 ON ROOM AIR PLACED ON O2 AT 2L/NC. 6FR EXOCELE TO R GROIN, DRESSING CDI NO BLEEDING OR HEMATOMA NOTED. R PEDAL PULSE PALPABLE. CALL LIGHT IN REACH
--- NOTE | 2018-06-07 13:34 | NUR ---
PT SLEEPING QUIETLY, R GROIN DRESSING CDI NO BLEEDING OR HEMATOMA NOTED. HR 78, BP 122/72. CALL LIGHT IN REACH, SPOUSE AT BEDSIDE.
[2018-06-07 13:42] LABS: PLATELET ESTIMATE DECREASED
--- NOTE | 2018-06-07 14:00 | NUR ---
PT RESTING W EYES CLOSED, SIPS OF CRANBERRY JUICE GIVEN. R GROIN REMAINS SOFT, DRESSING CDI NO BLEEDING OR SWELLING NOTED. CALL LIGHT IN REACH, AT BEDSIDE.
--- NOTE | 2018-06-07 14:15 | NUR ---
PT RESTING COMFORTABLY, FEW BITES OF APPLESAUCE GIVEN PER REQUEST. R GROIN REMAINS SOFT TO TOUCH, NO BLEEDING OR SWELLING NOTED. R PEDAL PULSE PALPABLE. CALL LIGHT IN REACH. DENIES PAIN OR OTHER NEEDS
--- NOTE | 2018-06-07 14:45 | NUR ---
R GROIN REMAINS SOFT, NO BLEEDING OR SWELLING NOTED. PT DENIES PAIN OR NEEDS. CALL LIGHT IN REACH
--- NOTE | 2018-06-07 15:09 | OP ---
PATIENT NAME: TATI VELÁSQUEZ MEDICAL RECORD: [id number] :59 LOCATION:D.CAT ADMISSION DATE: SURGEON: SHEREE MARTINEZ MD DATE OF OPERATION: 06/07/2018 PROCEDURES: 1. PTCA stent RCA. 2. Intravascular ultrasound. 3. Left heart catheterization. 4. Selective coronary angiography. 5. Left ventriculogram. INDICATION: Angina and coronary artery disease. PROCEDURE IN DETAIL: After informed consent was obtained and after a detailed description of the risks, benefits as well as alternative therapies, the patient elected to proceed with angiogram and angioplasty. The right femoral area was prepped and draped in normal sterile fashion. Right femoral artery was cannulated via modified Seldinger technique with placement of 6-[place] Island[place] sheath. All catheters exchanged through this sheath. FINDINGS: Left ventriculogram was performed in standard 30-degree SHAH view, reveals good cardiac wall motion throughout all segments. Overall ejection fraction estimated 60%. SELECTIVE CORONARY ANGIOGRAPHY: 1. Left main is with no significant angiographic disease. 2. Left anterior descending has previously placed stents in the LAD and diagonal. These are widely patent with no significant restenosis. No disease elsewise throughout the LAD or its branches. 3. The left circumflex has moderate irregularities, but no flow-limiting stenosis. 4. Right coronary artery has greater than 70% stenosis confirmed by intravascular ultrasound. PTCA STENT OF THE RIGHT CORONARY ARTERY: The stent used was a 4.0 x 18 mm Integrity. Result was 0% residual stenosis. OVERALL IMPRESSION: Successful PTCA stent of the RCA going from greater than 70% initial stenosis confirmed by intravascular ultrasound to 0% residual. TRANSINT:[id number] Voice Confirmation ID: [id number] DOCUMENT ID: [id number] SHEREE MARTINEZ MD at 1509 CC: [id number] DICTATION DATE: 06/07/18 1257 APARTMENT RENTAL CLERK: 06/07/18 1309 [facility] [address] [place] [id number]
--- NOTE | 2018-06-07 15:20 | NUR ---
PT C/O BACK HURTING TILTED BED SLIGHTLY AND PLACED SMALL PILLOW UNDER LEGS, R GROIN DRESSING CDI NO BLEEDING OR SWELLING NOTED. CALL LIGHT IN REACH, HR 80, BP 117/63.
--- NOTE | 2018-06-07 15:49 | NUR ---
PT RESTING QUIETLY, DENIES PAIN OR NEEDS. R GROIN SOFT NO BLEEDING OR HEMATOMA NOTED. CALL LIGHT IN REACH
--- NOTE | 2018-06-07 16:01 | NUR ---
HOB ELEVATED SLIGHTLY, SANDWICH SERVED. GROIN REMAINS SOFT NO BLEEDING OR SWELLING NOTED. CALL LIGHT IN REACH
--- NOTE | 2018-06-07 16:28 | NUR ---
IV REMOVED W CATH INTACT, MONITORS AND O2 OFF. IS ASSISTING PT TO GET DRESSED. R GROIN DRESSING REMAINS CDI NO BLEEDING OR HEMATOMA NOTED.
--- NOTE | 2018-06-07 16:40 | NUR ---
DISCHARGE TEACHING REVIEWED W PT AND , BOTH VERBALIZED UNDERSTANDING. PT DRESSED WAITING FOR LIFTING ASSISTANCE TO MOVE TO WC
--- NOTE | 2018-06-07 16:47 | NUR ---
PT DISCHARGED VIA WC TO PRIVATE VEHICLE, ASSISTANCE GIVEN TO GET INTO VEHICLE
== END 2018-06-07 16:50 | disposition home or self-care (01) ==
LOC: D.CATH 09:19
PROVIDERS: Internal Medicine Interventional Cardiology
DX: I25.119 Atherosclerotic heart disease of native coronary artery with unspecified angina pectoris (principal); Z01.812 Encounter for preprocedural laboratory examination

== ENCOUNTER → 2019-10-14 18:31 | Outpatient (CLI) | payer MEDICARE, MEDICAID ==
[2018-06-07 10:16] VITALS: BMI 23.4
[~2019-10-14 18:31] MED LIST changes: +ALBUTEROL SULF8.5 GM INH; +ALDACTONE50 MG PO; +ATARAX 25 MG TA25 MG PO; +BREO ELLIPTA 11 EACH INH; +BUSPAR10 MG PO; +CLOBETASOL PROP15 GM TP; +CROMOLYN S20 MG/2 ML NEB; +CYMBALTA30 MG PO; +DEPAKOTE500 MG PO; +FLUTICASONE PRO16 GM NASAL; +HUMULIN R SQ; +IPRAT-ALBUT 0.5-3 ML UPD; +LINZESS145 MCG PO; +MACRODANTIN100 MG PO; +PROPRANOLOL HCL20 MG PO; +PROTONIX20 MG PO; +PULMICORT0.5 MG/21 INH; +REMERON30 MG PO; +RESTASIS EACH EYE; +ROBAXIN500 MG PO; +SOLODYN115 MG PO; +TRESIBA FL100 UNIT/1 SC; +VENTOLIN IH; +ZOFRAN4 MG PO
[2019-10-14 21:03] LABS: BILIRUBIN NEGATIVE (NEGATIVE); GLUCOSE 50 mg/dL (NEGATIVE); KETONE NEGATIVE (NEGATIVE); NITRITE NEGATIVE (NEGATIVE); SPECIFIC GRAVITY 1.015 (1.005-1.020); UROBILINOGEN NORMAL (NORMAL)
[2019-10-14 21:04] LABS: BACTERIA MODERATE /hpf (NEGATIVE); EPITHELIAL CELLS 0-5 /hpf (0-5); RED CELLS - URINE 0-5 /hpf (0-5)
== END | disposition home or self-care (01) ==
LOC: D.LABREF 18:31
PROVIDERS: ATTEND Family Medicine Sports Medicine
DX: N39.0 Urinary tract infection, site not specified (principal); R30.0 Dysuria; R35.0 Frequency of micturition